=== PATIENT | female | born 1955 | race Asian ===

== ENCOUNTER → 2022-11-03 | Outpatient (CLI) | payer MEDICARE, OTHER ==
[~2022-11-03] VITALS: Ht 152.4 cm; Wt 57.2 kg
[~2022-11-03] MED LIST: ALPR-707 PO; ATEN-72 PO; ATOR40TA28 PO; BENZ142C7 TP; BUSP15 PO; CALC600T2 PO; CARB15DR; DOCO1CAP5 PO; ESOM40CA PO; LOSA1TAB7 PO; MULT-1366 PO; OMEP20 PO; OXYC-490 PO; PARO30TA76 PO; SIMV-43 PO; TELM40 PO; TOPI25 PO; VENL-67 PO; [UNRECOGNIZED DRUG - CODE] PO
[2022-11-03 14:53] VITALS: BP 134/78; PULSE 71; RESP 20; TEMP 99.2; O2SAT 98
== END | disposition home or self-care (01) ==
LOC: SRCNTR 14:24
PROVIDERS: ATTEND Internal Medicine
DX: Z01.810 Encounter for preprocedural cardiovascular examination (principal); I10 Essential (primary) hypertension; E78.5 Hyperlipidemia, unspecified; M25.552 Pain in left hip
CPT/HCPCS: 93005; G0463

== ENCOUNTER → 2022-11-08 | Outpatient (CLI) | payer MEDICARE, OTHER ==
[~2022-11-08] MED LIST changes: -ALPR-707 PO; -CALC600T2 PO; -ESOM40CA PO; -LOSA1TAB7 PO; -OXYC-490 PO; -PARO30TA76 PO; -SIMV-43 PO; -[UNRECOGNIZED DRUG - CODE] PO
== END | disposition home or self-care (01) ==
LOC: RADPV 10:22
PROVIDERS: ATTEND Internal Medicine
DX: Z01.818 Encounter for other preprocedural examination (principal); I35.1 Nonrheumatic aortic (valve) insufficiency; I10 Essential (primary) hypertension
CPT/HCPCS: 93306

== ENCOUNTER → 2023-01-10 | Outpatient (CLI) | payer MEDICARE, OTHER | END | disposition home or self-care (01) | LOC: SRCNTR 14:02 | PROVIDERS: ATTEND Internal Medicine | DX: I10 Essential (primary) hypertension (principal); E78.5 Hyperlipidemia, unspecified; I35.1 Nonrheumatic aortic (valve) insufficiency; M25.552 Pain in left hip; Z79.899 Other long term (current) drug therapy; Z88.8 Allergy status to other drugs, medicaments and biological substances | CPT/HCPCS: Q3014 ==